=== PATIENT | male | born 1955 | race Caucasian/White ===

== ENCOUNTER → 2018-03-17 11:43 | Outpatient (CLI) | payer BC, SELFPAY ==
--- NOTE | 2018-03-17 11:49 | RAD_ITS ---
STUDY: X-RAY CHEST REASON FOR EXAM: Male, 62 years old. Shortness of breath. TECHNIQUE: PA and lateral views of the chest. COMPARISON: Comparison is made with prior study dated March 29, 2015. FINDINGS: Hyperinflation. Stable mild increased linear markings at the lung bases suggestive of mild bibasilar linear scarring. Blunting of both costophrenic angles. Normal size heart. Normal mediastinum and marlee. Normal visualized pulmonary arteries. There is atherosclerotic calcification of the aortic arch with tortuosity. Normal visualized thoracic spine. Normal visualized ribs, clavicles, and shoulders. There is no demonstrated abnormality of the visualized soft tissue structures of the upper abdomen. RAD/Chest PA and Lateral IMPRESSION: Hyperinflation. Stable mild increased linear markings at the lung bases suggestive of a mild basilar scarring. Electronically Signed: Pernell Darby MD at 12:26 EDT Tel [phone], Service support ,
== END ==
PROVIDERS: Family Provider Family Medicine; PCP Family Medicine; Visit Provider Nurse Practitioner Adult Health
DX: R06.02 Shortness of breath (principal)
CPT/HCPCS: 71046

== ENCOUNTER → 2018-07-06 12:04 | Outpatient (CLI) | payer BC, SELFPAY | PROVIDERS: Family Provider Family Medicine; PCP Family Medicine; Visit Provider Internal Medicine Pulmonary Disease | DX: Z87.891 Personal history of nicotine dependence (principal); Z12.2 Encounter for screening for malignant neoplasm of respiratory organs | CPT/HCPCS: G0297 ==

== ENCOUNTER 2019-12-11 08:48 | Inpatient (IN) | payer MEDICARE, OTHER, SELFPAY ==
[2019-12-11] VITALS (18 sets, daily range): BP systolic 99–168; BP diastolic 41–87; PULSE 78–104; RESP 12–38; TEMP 36.4–37; O2SAT 95–99; BMI 24.3; BMI 23.6; BMI 23.7
--- NOTE | 2019-12-11 08:56 | EKG12_ITS ---
Test Reason : SOB Blood Pressure : / mmHG Vent. Rate : 087 BPM Atrial Rate : 087 BPM P-R Int : 118 ms QRS Dur : 080 ms QT Int : 354 ms P-R-T Axes : 084 074 068 degrees QTc Int : 425 ms Normal sinus rhythm Normal ECG When compared with ECG of 29-MAR-2015 21:02, No significant change was found Confirmed by MARY JOHN, VERONICA ([id number]), general expeditor NICOLASA CHERRY ([id number]) on 12/25/2019 2:49:06 PM Referred By: VLAD Confirmed By:NOAH HERNANDEZ MD
--- NOTE | 2019-12-11 08:58 | CT_ITS ---
STUDY: CT ABDOMEN AND PELVIS WITH CONTRAST REASON FOR EXAM: Male, 64 years old. SOB X 1 WEEK, DIARRHEA, ABD PAIN RADIATION DOSAGE (If Supplied By Facility): CTDIvol = ( 11.53 ) mGy, DLP = ( 592.60 ) mGycm TECHNIQUE: Transaxial images were obtained from the dome of the diaphragm to the symphysis pubis without oral contrast. Oral and amp; IV Gastrografin and amp; 100mL Isovue-300 was administered. Sagittal and coronal images were reconstructed. Individualized dose optimization techniques were used for this CT. COMPARISON: None. FINDINGS: The visualized lung bases are unremarkable. The visualized portions of the heart are within normal limits. There is a 2.6 cm x 2.5 cm x 3.3 cm cyst in the left lobe of the liver. Possible tiny gallstones along the dependent portion of the gallbladder. Normal spleen. Normal pancreas. Normal bilateral adrenal glands. Normal right kidney. Normal left kidney. Normal visualized stomach. Normal small intestine. There are multiple colonic diverticula consistent with diverticulosis. The appendix is visualized and appears normal. There is diffuse atherosclerotic calcification of the abdominal aorta, without a demonstrated aneurysm. Normal inferior vena cava. Normal retroperitoneum. Normal urinary bladder. Edematous on prior lower anterior abdominal wall hernia repair. Disc space narrowing with subchondral sclerosis and spondylosis in the lower lumbar spine worse at the L4-L5 level. Loss of the normal lumbar lordosis. CT/Abdomen/Pelvis WITH Contrast IMPRESSION: I suspect tiny gallstones along the dependent portion of the gallbladder lumen. 2.6 cm x 2.5 cm x 3.3 cm cyst in the left lobe of the liver. Electronically Signed: Pernell Darby, at 12:34 EST , Service support ,
--- NOTE | 2019-12-11 08:59 | RAD_ITS ---
STUDY: X-RAY CHEST REASON FOR EXAM: Male, 64 years old. SOB TECHNIQUE: Single AP portable view of the chest. COMPARISON: Comparison is made with prior study dated March 17, 2018. FINDINGS: EKG electrodes are seen. Hyperinflation. Stable mild increase in markings at the lung bases suggest some mild bibasilar scarring. There is no demonstrated pleural abnormality. Normal size heart. Normal mediastinum and marlee. Normal visualized pulmonary arteries. There is atherosclerotic calcification of the aortic arch with tortuosity. Normal visualized thoracic spine. Normal visualized ribs, clavicles, and shoulders. There is no demonstrated abnormality of the visualized soft tissue structures of the upper abdomen. RAD/Chest 1 View (Portable) IMPRESSION: Hyperinflation. Stable mild increased linear markings at the lung bases. Electronically Signed: Pernell Darby, at 9:43 EST , Service support ,
--- NOTE | 2019-12-11 09:05 | ED.DCSUM_ITS ---
- ER Visit Summary Date of Service: 12/11/19 Chief Complaint: Shortness of breath History of Present Illness: The patient is a 64 M presenting with shortness of breath. Family states he has been short of breath for awhile. Patient states that he is on 5 L home O2. He has been increasingly short of breath recently. He also complains of diarrhea which has been ongoing for several weeks. He states that he is having 3 episodes of diarrhea per day. He denies blood in the stool. He has had a decreased appetite and family states he is no longer eating. He denies chest pain. Denies fever. He has nausea with no vomiting. He has cramping diffuse abdominal pain. Denies other complaints. Physical Examination: Vitals are stable. Patient is afebrile. Alert no acute distress. HEENT exam is unremarkable. Neck is supple. Lungs are diffuse wheezing and diminished bilaterally Heart is regular rate and rhythm. Abdomen is soft diffuse abdominal tenderness. No rebound or guarding Extremities are unremarkable. Skin is warm and dry. No focal neurologic deficit. Remainder of exam is unremarkable. Emergency Department Course and Treatment: Patient is given albuterol, Atrovent aerosols. He was started on BiPAP on arrival to the ED. EKG is sinus rate of 87 with no acute ischemic changes. CBC, chemistries unremarkable other than CO2 39, glucose 117. ALT 68. Lipase 58. Troponin negative. Lactic acid normal. Urinalysis is unremarkable. Chest x-ray shows hyperinflation. Stable mild increased linear markings at the lung bases. Patient was taken off BiPAP for a trial and did well until he started to move around and became extremely short of breath again. BiPAP was started again. CT abdomen pelvis shows suspect tiny gallstones along the dependent portion of the gallbladder lumen. 2.6 cm x 2.5 cm x 3.3 cm cyst in the left lobe of the liver. Stool studies were ordered. He was given Solu-Medrol IV. Discussed with the hospitalist for admission. Disposition: Admission Impression: COPD exacerbation, diarrhea This note was generated with [employer] dictation software. It may contain incorrect words, spelling, and punctuation that were not noted in review of the chart prior to signing ED Disposition - Plan for ED Patient: Referrals: Tyron Judge MD [Primary Care Provider] -
[2019-12-11 09:15] LABS: Absolute Lymphocyte Count 1.09 X10^3/uL (0.83-4.51); Absolute Neutrophil Count 7.4 X10^3/uL (2.0-7.7); Basophil# 0.06 X10^3/uL; Basophil% 0.7 % (0-1); Eosinophil# 0.07 X10^3/uL; Eosinophils% 0.8 % (0-5); Hematocrit 43.4 % (40-54); Hemoglobin 13.9 g/dL (13.0-16.5); Lymphocyte # 1.09 X10^3/ul (4.0); Lymphocyte % 11.9 % (19-41); Mean Corpuscular Hgb 32.4 pg (27.0-32.0); Mean Corpuscular Volume 101.2 fL (80-94); Mean Platelet Vol. 11.6 fl (6.2-12.0); Monocyte# 0.53 X10^3/uL; Monocyte% 5.8 % (0-10); NRBC Flagged by Analyzer 0 % (0-5); Neutrophil # 7.41 X10^3/uL (2.7-7.7); Neutrophil % 80.5 % (47-70); Platelet Count 160 K/mm3 (150-450); RBC Distribution Width CV 11.8 % (11.6-14.6); RBC Distribution Width SD 43.4 fl (35.1-43.9); Red Blood Count 4.29 M/mm3 (4.6-6.2); White Blood Count 9.2 K/mm3 (4.4-11.0)
[2019-12-11] MEDS: Ipratropium/Albuterol Sulfate 3 ML AMPUL.NEB INHALATION ×3 (09:27→19:22)
[2019-12-11] MEDS: Albuterol 2.5 MG/3 ML VIAL.NEB. INHALATION ×3 (09:27→10:01)
[2019-12-11 09:34] LABS: Lactic Acid 1.1 mmol/L (0.4-1.9)
[2019-12-11 09:37] LABS: ALB/GLOB Ratio 0.9 RATIO (0.9-2.4); AST(SGOT) 34 U/L (15-37); Alanine Aminotransfer ALT/SGPT 68 U/L (16-61); Albumin, Serum 3.8 g/dL (3.2-5.0); Alkaline Phosphatase 89 U/L (45-117); Anion Gap 0 (5-15); BUN 11 mg/dL (7-18); BUN/Creat Ratio 13.9 RATIO (10-20); Calcium,Total 9.3 mg/dL (8.5-10.1); Chloride 98 mmol/L (98-107); Creatinine, Serum 0.79 mg/dL (0.70-1.30); EST Glomerular Filtration Rate 104 mL/min (>60); Est Glom Filt Rate - Afr Amer 126 mL/min (>60); Estimated Creatinine Clearance 96.26 ml/min; Globulin 4.1 g/dL (2.2-4.2); Glucose 117 mg/dL (74-106); Lipase 58 U/L (73-393); Potassium 4.5 mmol/L (3.5-5.1); Protein, Total 7.9 g/dL (6.4-8.2); Sodium Level 137 mmol/L (136-145)
[2019-12-11 11:02] LABS: Bacteria 0 SEEN /hpf (None Seen); Mucous, Urine 0 SEEN /hpf (<or=2+); Red Blood Cells-Urine 0 SEEN /hpf (0-5); Squamous Epithelial Cells - UA 0 SEEN /hpf (0-5); White Blood Cells 0 SEEN /hpf (0-5)
--- NOTE | 2019-12-11 11:02 | CPS ---
Had removed the BIPAP and placed on 5LPM O2 he had to get up to bedside and became very SOB and placed back on BIPAP.
[2019-12-11 11:07] LABS: Color, Urine Yellow (Yellow); Glucose, Dipstick Normal (Normal); Ketone-Dipstick Negative (Negative); Leukocyte Esterase-Dipstick Negative /ul (Negative); Nitrite-Dipstick Negative (Negative); Occult Blood-Urine Negative /ul (Negative); Protein-Dipstick Negative (Negative); Urine Bilirubin Dipstick Negative (Negative); Urine Clarity Sl. Cloudy (Clear); Urine Urobilinogen Normal (Normal)
[2019-12-11] MEDS: MethylPREDNISolone 125 MG/2 ML Vial IV (13:08)
--- NOTE | 2019-12-11 13:35 | HP.PCM_ITS ---
History of Present Illness Date of Admission: 12/11/19 Chief Complaint: diarrhea, shortness of breath The patient is a 64 year old M with a past medical history of COPD and depression. He was admitted through the ED on 12/11/2019 with a complaint of diarrhea and shortness of breath. He states diarrhea has been going on for about a week and gradually worsening. There was no blood and was mainly mucoid. He did not eat any takeout food at the time of the start of diarrhea but says he feels like anytime he eats he just has to go and goes times every day. He also noted that he was getting progressively short of breath. He has chronic respiratory failure due to COPD and is on 5 L at home. He has however been using his inhalers and nebulizers more frequently than usual and states the slightest exertion causes a saturation level to drop sometimes to the 80s. He still smokes though he says he smokes just a few sticks of cigarettes daily. He denied any cough but admitted to wheezing and denied any chest pain, nausea of vomiting no fever or chills. He does say that he took antibiotics about a week ago for respiratory infection. He denies any long distance travel or any history of clots in his legs or lungs. On admission in the ED, he was breathing at nearly 40 breaths/min and required BiPAP immediately. Vitals were significant for temperature of 97.6 with respiratory rate of 20 at time of review, pulse rate of 94 and blood pressure of 144/76. Chemistry was remarkable for bicarb of 39 with lactic acid of 1.1 and initial troponin of less than 0.015. Lipase was only 58. CBC was unremarkable with hemoglobin of 13.9 though he had mild elevation in MCV of 101.2 and MCH was 32.4. Chest x-ray showed hyperinflation with stable mild increased linear markings at the lung base. EKG showed normal sinus rhythm with no acute ST changes and CT of the abdomen and pelvis showed a 2.6 cm x 2.5 cm and 3.3 cm cyst in the left lobe of the liver and possible tiny gallstones along the dependent portion of the gallbladder with normal pancreas as well as loss of normal lumbar lordosis. He has been admitted to be managed for acute on chronic hypoxic respiratory failure due to COPD exacerbation and gastroenteritis. [] Past Medical History Allergies No Known Allergies Allergy (Verified 12/11/19 08:53) Home Medications: Ambulatory Orders Medication Instructions Recorded Furosemide [Lasix] 20 mg PO BIDLX 03/29/15 Citalopram Hydrobromide 10 mg PO DAILY 12/11/19 [Citalopram HBr] Gabapentin [Neurontin] 200 mg PO TID 12/11/19 Ipratropium/Albuterol Sulfate 3 ml IH Q4H PRN PRN 12/11/19 [Iprat-Albut 0.5-3(2.5) mg/3 ml] Levocetirizine Dihydrochloride 5 mg PO DAILY 12/11/19 Magnesium Oxide 400 mg PO TID 12/11/19 Surgical History: - - hernia repair Psychiatric History: Depression Lives: Spouse/ Significant Other Smoking Status: Current every day smoker Alcohol: None Drugs: None - *Family History Maternal History Items: No pertinent history Paternal History Items: No pertinent history Review of Systems Constitutional: Reports: Anorexia, Malaise, Weakness, Fatigue. Denies: Chills, Fever, Weight Change Eyes: Denies: Blurred vision HEENT: Denies: Head Aches, Sinus Congestion, Sinus Drainage Cardiovascular: Denies: Chest Pain, Palpitations Respiratory: Reports: Shortness of Breath, Shortness of breath at rest, Shortness of breath upon exertion, Wheezing. Denies: Cough, Sputum production Gastrointestinal: Reports: Diarrhea. Denies: Abdominal Pain, Nausea, Vomiting Genitourinary: Denies: Dysuria Musculoskeletal: Denies: Joint Pain, Joint Tenderness Skin: Denies: Rash, Wounds Neurological: Denies: Numbness, Tingling, Focal weakness Psychiatric: Denies: Anxiety, Depression, Homicidal Ideations, Suicidal Ideations Hematologic/ Lymphatic: Denies: Easy Bruising, Easy Bleeding VTE Information - Inpt Only VTE Present on Admission: No VTE Pharm Prophylaxis ordered?: Yes - Physical Exam Vitals/I&O's: Vital Signs Temp Pulse Resp BP Pulse Ox 97.6 F L 82 24 H 124/71 H 99 12/11/19 08:49 12/11/19 13:03 12/11/19 13:03 12/11/19 13:03 12/11/19 13:03 Oxygen Flow Rate (L/min) 6 Oxygen Delivery Method Nasal Cannula Weight: 169 lb 1.513 oz Body Mass Index (BMI) 24.3 General: Alert, Oriented x3, Cooperative, Lethargic HEENT: Atraumatic, PERRLA, EOMI, Normocephalic Oral: Dry Mucosa Neck: Supple, No JVD, Negative Carotid Bruits Lungs: - - diminished breath sounds in all lung springer; tachypneic, breathing through pursed lips; on 6L of oxygen by nasal canula Cardiovascular: Regular rate, Regular Rhythm, Normal S1, Normal S2, No murmurs Abdomen: Bowel Sounds Present, Soft, - - mild generalised tenderness, no guarding or rebound tenderness. Pyle's sign negative Extremities: No clubbing, No cyanosis, No edema, Capillary Refill Less than 3 Seconds Skin: No rashes, No breakdown Musculoskeletal: No Tenderness to Palpation of Joints or Extremities Lymphatic: No Cervical, Supraclavicular, or Inguinal Adenopathy Neurological: Cranial nerves II-XII grossly intact, Neuro grossly intact, Motor Exam 5/5 strength throughout Psych/Mental Status: Normal Affect, Appropriate, Alert and oriented to time, place, person, mood and affect Microbiology Past 72 Hours 12/11/19 09:15 Mucosa - Nose Influenza Types A,B Direct FA (ESTUARDO) - Final Laboratory Results 12/11/19 09:00: WBC 9.2, RBC 4.29 L, Hgb 13.9, Hct 43.4, MCV 101.2 H, MCH 32.4 H , MCHC 32.0, RDW Std Deviation 43.4, RDW Coeff of Bassam 11.8, Plt Count 160, MPV 11.6, Immature Gran % (Auto) 0.300, Neut % (Auto) 80.5 H, Lymph % (Auto) 11.9 L, Parker % (Auto) 5.8, Eos % (Auto) 0.8, Baso % (Auto) 0.7, Absolute Neuts (auto) 7.4, Absolute Lymphs (auto) 1.09, Nucleated RBC % 0 12/11/19 09:00: Sodium 137, Potassium 4.5, Chloride 98, Carbon Dioxide 39.0 H, Anion Gap 0 L, BUN 11, Creatinine 0.79, Estim Creat Clear Calc 96.26, Est GFR (MDRD) Af Amer 126, Est GFR (MDRD) Non-Af 104, BUN/Creatinine Ratio 13.9, Glucose 117 H, Calcium 9.3, Total Bilirubin 0.50, AST 34, ALT 68 H, Alkaline Phosphatase 89, Troponin I < 0.015, Total Protein 7.9, Albumin 3.8, Globulin 4.1, Albumin/Globulin Ratio 0.9, Lipase 58 L 12/11/19 09:00: Lactic Acid 1.1 12/11/19 11:00: Urine Color Yellow, Urine Clarity Sl. Cloudy, Urine pH 7.0, Ur Specific [place] 1.010, Urine Protein Negative, Urine Glucose (UA) Normal, Urine Ketones Negative, Urine Occult Blood Negative, Urine Nitrite Negative, Urine Bilirubin Negative, Urine Urobilinogen Normal, Ur Leukocyte Esterase Negative, Urine RBC 0 SEEN, Urine WBC 0 SEEN, Ur Squamous Epith Cells 0 SEEN, Urine Bacteria 0 SEEN, Urine Mucus 0 SEEN Diagnostic Data Abdomen/Pelvis CT 12/11/19 08:58 IMPRESSION: I suspect tiny gallstones along the dependent portion of the gallbladder lumen. 2.6 cm x 2.5 cm x 3.3 cm cyst in the left lobe of the liver. Electronically Signed: Pernell Darby, at 12:34 EST , Service support , Chest X-Ray 12/11/19 08:59 IMPRESSION: Hyperinflation. Stable mild increased linear markings at the lung bases. Electronically Signed: Pernell Darby, at 9:43 EST , Service support , Assessment/Plan 64 y/o admitted with a complaint of shortness of breath and diarrhea 1. Acute on chronic hypoxic respiratory failure due to COPD exacerbation * Admit to PCU with telemetry * CBC shows no leukocytosis and BMP shows bicarb of 39 which is likely due to chronic retention of CO2 * Chest x-ray showed no acute cardiopulmonary process. * Start IV Solu-Medrol 40 mg every 8 hours. Breathing treatment with DuoNeb's. * Patient counseled strongly that he will need to quit smoking. * Check respiratory panel. * Get 2D echo as well is concerned that his shortness of breath is getting worse and that he do not know if he has any history of heart disease or otherwise. 2. Acute gastroenteritis * Has been having diarrhea for the past week. * States he received antibiotics about a week ago for a respiratory infection. Check C. difficile. * Check stool enteric pathogen panel * Hydrated with IV fluid normal saline at 150 cc/h. * If C. difficile comes back negative, to consider starting Lomotil 3. Depression: Recently diagnosed. On citalopram. DVT prophylaxis: Lovenox CODE STATUS: Full code * Patient and family ounseled extensively about different types of CODE STATUS including full code, DNR CCA and DNR CCA. Patient elects to be full code. * Total [id number] time 17 minutes. Code Visit Inpatient E&M: 93893 Init Hosp L3 Procedures: 55071 Advncd Care Plan 30 Min
--- NOTE | 2019-12-11 14:41 | ECHOD_ITS ---
Reason For Study: Dyspnea/SOB Procedure This was a 2D Doppler, Color Flow transthoracic echocardiogram. Exam performed portable in patient room. Left Ventricle Normal LV size. Left ventricular systolic function is normal. The estimated ejection fraction is 60 %. Normal diastology for age. No regional wall motion abnormalities noted. Right Ventricle Normal RV size. Normal systolic function. Atria Normal left atrium. Normal right atrium. Mitral Valve Normal mitral valve. Tricuspid Valve Normal tricuspid valve. Mild (1+) tricuspid valve insufficiency. Pulmonary artery systolic pressure is 36 mmHg. Aortic Valve Normal aortic valve. Pulmonic Valve The pulmonic valve is not well visualized. Great Vessels Normal aortic root. The pulmonary artery is normal size. Normal inferior vena cava. Pericardium/Pleural No pericardial effusion. MMode/2D Measurements & Calculations LVIDd: 4.7 cm IVSd: 0.78 cm Ao root diam: 2.8 cm LVIDs: 3.4 cm LVPWd: 0.93 cm RVDd: 4.1 cm FS: 27.8 % LAV(MOD-bp): 29.3 ml LA A4 area: 11.8 cm2 LA dimension(2D): 3.3 cm LAV(MOD-bp) Indexed: 15.3 ml/m2 LAV(MOD-sp2): 30.5 ml LAV(MOD-sp4): 23.5 ml RA A4 area: 12.7 cm2 Doppler Measurements & Calculations MV E max murphy: 63.9 cm/sec Lat Peak E' Murphy: 10.5 cm/sec Med Peak E' Murphy: 8.7 cm/sec MV A max murphy: 75.0 cm/sec E/E' lat: 6.1 E/E' med: 7.3 MV E/A: 0.85 Ao V2 max: 167.6 cm/sec LV V1 max: 126.5 cm/sec PA V2 max: 138.9 cm/sec Ao max P.2 mmHg LV V1 max P.4 mmHg Ao V2 mean: 118.4 cm/sec Ao mean P.0 mmHg Ao V2 VTI: 30.0 cm TR max murphy: 285.6 cm/sec TR max P.6 mmHg Interpretation Summary Normal LV size. Left ventricular systolic function is normal. The estimated ejection fraction is 60 %. Normal diastology for age. Mild (1+) tricuspid valve insufficiency. Pulmonary artery systolic pressure is 36 mmHg. Ordering Physician: Cheli Obando Referring Physician: Tyron Judge Performed By: Constanza Michelle RDCS, RVT
--- NOTE | 2019-12-11 15:15 | NURSING ---
this RN taking over care at this time
[2019-12-11] MEDS: 0.9% Normal Saline 1,000 ML 150 ML IV ×2 (15:54→21:53)
[2019-12-11 15:55] LABS: BNP,B-Type NATRIURETIC PEPTIDE 8.9 pg/mL (0-100)
[2019-12-11] MEDS: Citalopram 10 MG Tablet PO (21:37)
--- NOTE | 2019-12-11 21:55 | NURSING ---
Unscheduled dose of Celexa given due to patient takes medication at HS and requested it to be given at bedtime.
[2019-12-12] VITALS (15 sets, daily range): BP systolic 104–138; BP diastolic 39–73; PULSE 69–88; RESP 18–20; TEMP 36.7–36.9; O2SAT 88–100
[2019-12-12] MEDS: 0.9% Normal Saline 1,000 ML 150 ML IV (04:35)
[2019-12-12] MEDS: Ipratropium/Albuterol Sulfate 3 ML AMPUL.NEB INHALATION ×4 (04:55→19:06)
[2019-12-12 06:06] LABS: Absolute Lymphocyte Count 0.48 X10^3/uL (0.83-4.51); Absolute Neutrophil Count 9.5 X10^3/uL (2.0-7.7); Basophil# 0.01 X10^3/uL; Basophil% 0.1 % (0-1); Hematocrit 38.1 % (40-54); Hemoglobin 12.2 g/dL (13.0-16.5); Lymphocyte # 0.48 X10^3/ul (4.0); Lymphocyte % 4.7 % (19-41); Mean Corpuscular Hgb 32.3 pg (27.0-32.0); Mean Corpuscular Volume 100.8 fL (80-94); Mean Platelet Vol. 11.2 fl (6.2-12.0); Monocyte# 0.24 X10^3/uL; Monocyte% 2.3 % (0-10); NRBC Flagged by Analyzer 0 % (0-5); Neutrophil # 9.51 X10^3/uL (2.7-7.7); Neutrophil % 92.4 % (47-70); POSITIVE DIFFERENTIAL YES; Platelet Count 139 K/mm3 (150-450); RBC Distribution Width CV 11.5 % (11.6-14.6); RBC Distribution Width SD 42.1 fl (35.1-43.9); Red Blood Count 3.78 M/mm3 (4.6-6.2); White Blood Count 10.3 K/mm3 (4.4-11.0)
[2019-12-12 06:07] LABS: Differential Indicated SCAN CRITERIA MET
[2019-12-12 06:23] LABS: Anion Gap 1 (5-15); BUN 13 mg/dL (7-18); BUN/Creat Ratio 20.7 RATIO (10-20); Calcium,Total 8.5 mg/dL (8.5-10.1); Chloride 101 mmol/L (98-107); Creatinine, Serum 0.63 mg/dL (0.70-1.30); EST Glomerular Filtration Rate 137 mL/min (>60); Est Glom Filt Rate - Afr Amer 165 mL/min (>60); Glucose 136 mg/dL (74-106); Potassium 4.9 mmol/L (3.5-5.1); Sodium Level 139 mmol/L (136-145)
[2019-12-12 06:30] LABS: Platelet Estimate ADEQUATE (ADEQ)
[2019-12-12 06:31] LABS: Red Cell Morphology NORM C+C NORMAL (NORM C&C)
[2019-12-12] MEDS: Loratadine 10 MG Tablet 5 MG PO (08:38)
--- NOTE | 2019-12-12 09:28 | CASEMGMT ---
Patient has a Healthcare Living Will and Healthcare Power of Roll Repairer. He is aware they are not on file at [facility] and it would be good to bring copies to [facility] when able. Bethany BABIN
--- NOTE | 2019-12-12 10:56 | CASEMGMT ---
MARY HERNANDEZ assessment: Face to Face with patient for initial transition planning/care coordination assessment. MARY HERNANDEZ introduced self and role at [facility], pt voices understanding and consents to assessment at this time. Pt is sitting up in bed in some respiratory distress at this time. Pt is only able to answer a couple words at a time and has conversational dyspnea. Pt is A/Ox4 at this time and answers all questions appropriately at this time. Pt's sig other is at bedside during assessment. Care providers, pharmacy, and demographics verified/updated at this time. 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 Pt is aware that [facility] can complete AD paperwork, voices understanding. LNOK: Shai Mead, sig other; Lilia Martínez, daughter Living Arrangements: Pt states lives with sig other in 1 story home with 2 steps in and states no concerns at home at this time. Pt states is normally independent with ADL's but sig other can help, if needed. Transportation: Pt states drives self and states no transportation concerns at this time. DME/HHC: Pt states has a grab bar in the shower and home oxygen 5liters through [facility]. Pt states has nebulizer 'that somebody gave him' but states that 'it's really old and does not work well anymore.' Call to [facility] and per Thiago, the last order that they have for pt oxygen is for 2 liters continuous. MARY HERNANDEZ to send new order for increased home oxygen need and for nebulizer at discharge. Pt states he would still like to use [facility] at this time. Pt states no need for any further DME at this time. Pt states no hx of HHC or SNF in the past. Pt states no concerns with going home at time of discharge. 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 Pt states still smokes 3-4cigarettes daily but plans to quit after this admission and declines ETOH use. Pt states no further concerns/needs at this time. CM to follow for increase oxygen need and for any further discharge planning/needs. Advised pt/sig other to ask for CM if any further questions/concerns/needs arise, voices understanding. Pt Goal: Home Plan: Home Syed HERNANDEZ CM
--- NOTE | 2019-12-12 12:03 | PN_ITS ---
<Shaan Contreras - Last Filed: 12/12/19 12:03> Reason for Visit: SOB Subjective: Pt chronically uses 5lpm o2 and follows [facility] for pulm. He feels somewhat better than when he came in, however he is very dyspneic. He has been using his inhaler every time he gets out of bed even to go to the bathroom. The only physical activity he can tolerate is walking to the bathroom and back. He has severe conversational dyspnea with pursed lip breathing. He has a non productive cough. No LE edema. No CP. No fever/chills. Vitals/I&O's: Vital Signs Temp Pulse Resp BP Pulse Ox 98.5 F 81 18 104/39 L 97 12/12/19 08:30 12/12/19 10:20 12/12/19 10:20 12/12/19 08:30 12/12/19 08:30 Oxygen Flow Rate (L/min) 5 Oxygen Delivery Method Nasal Cannula Weight: 165 lb 2.02 oz Body Mass Index (BMI) 23.6 Intake and Output for Last 24 Hours 12/10/19 12/11/19 12/12/19 23:59 23:59 23:59 Intake Total 1497.5 / 1497.5 2360 / 2360 Balance 1497.5 / 1497.5 2360 / 2360 General: Alert, Oriented x3, Cooperative HEENT: Atraumatic, PERRLA, EOMI, Normocephalic Neck: Supple, No JVD, Negative Carotid Bruits Lungs: Clear to auscultation, Diminished - severely, - - pursed lip breathing Cardiovascular: Regular rate, No murmurs Abdomen: Bowel Sounds Present, Soft, Non Tender Extremities: No edema, Capillary Refill Less than 3 Seconds Skin: No rashes, No breakdown Musculoskeletal: No Tenderness to Palpation of Joints or Extremities Neurological: Cranial nerves II-XII grossly intact Psych/Mental Status: Anxious, Alert and oriented to time, place, person, mood and affect Microbiology Past 72 Hours 12/11/19 15:00 Stool Enteric Bacteriology - Final 12/11/19 15:00 Mucosa - Nose Respiratory Panel (PCR) - Final 12/11/19 15:00 Stool C. difficile DNA Amplification - Final 12/11/19 09:15 Mucosa - Nose Influenza Types A,B Direct FA (ESTUARDO) - Final Laboratory Results 12/11/19 09:00: B-Natriuretic Peptide 8.9 12/11/19 15:28: Troponin I < 0.015 12/11/19 18:16: Troponin I < 0.015 12/12/19 05:50: WBC 10.3, RBC 3.78 L, Hgb 12.2 L, Hct 38.1 L, MCV 100.8 H, MCH 32.3 H, MCHC 32.0, RDW Std Deviation 42.1, RDW Coeff of Bassam 11.5 L, Plt Count 139 L, MPV 11.2, Immature Gran % (Auto) 0.500, Neut % (Auto) 92.4 H, Lymph % (Auto) 4.7 L, Baca % (Auto) 2.3, Eos % (Auto) 0.0, Baso % (Auto) 0.1, Absolute Neuts (auto) 9.5 H, Absolute Lymphs (auto) 0.48 L, Nucleated RBC % 0, Differential Comment COMMENT, Platelet Estimate ADEQUATE, RBC Morphology NORM C+C 12/12/19 05:50: Sodium 139, Potassium 4.9, Chloride 101, Carbon Dioxide 37.0 H, Anion Gap 1 L, BUN 13, Creatinine 0.63 L, Estim Creat Clear Calc 120.70, Est GFR (MDRD) Af Amer 165, Est GFR (MDRD) Non-Af 137, BUN/Creatinine Ratio 20.7 H, Glucose 136 H, Calcium 8.5 Current Medications Albuterol/Ipratropium (Duoneb) 3 ml INHALATION Q4H PRN PRN PRN Reason: SOB &/OR WHEEZING Last Admin: 12/12/19 10:13 Dose: 3 ml Documented by: Citalopram Hydrobromide (Celexa) 10 mg PO DAILY@2200 NATE Gabapentin (Neurontin) 200 mg PO TID NATE Last Admin: 12/12/19 05:02 Dose: Not Given Documented by: Glucagon () 1 mg IM .X1 PRN PRN Reason: Hypoglycemia Guaifenesin (Robitussin) 20 ml PO Q4H PRN PRN PRN Reason: COUGH Dextrose (Dextrose 10%-Water) 250 mls @ 999 mls/hr IV .Q16M PRN; Protocol PRN Reason: HYPOGLYCEMIA Sodium Chloride () 250 mls @ 15 mls/hr IV .[id number] PRN PRN Reason: Saline Flush Sodium Chloride () 250 mls @ 15 mls/hr IV .[id number] PRN PRN Reason: Additional IVPB Infusion Loratadine (Claritin) 5 mg PO DAILY [facility] Last Admin: 12/12/19 08:38 Dose: 5 mg Documented by: Methylprednisolone (Solu-Medrol) 40 mg IV Q8 [facility] Last Admin: 12/12/19 05:02 Dose: 40 mg Documented by: Nitroglycerin (Nitrostat) 0.4 mg SUBLINGUAL Q5M PRN PRN Reason: CARDIAC/CHEST PAIN Nutritional Formula (Lactose Free) (Ensure Enlive) 120 ml PO 4X/DAY [facility] Last Admin: 12/12/19 08:42 Dose: Not Given Documented by: Ondansetron HCl (Zofran) 4 mg IV Q8H PRN PRN PRN Reason: NAUSEA/VOMITING Sodium Chloride () 10 - 40 ml IV UD PRN PRN Reason: SALINE FLUSH STROKE Vital Signs/Narrative: Vital Signs Temp Pulse Resp BP Pulse Ox 12/12/19 10:20 81 18 12/12/19 08:30 98.5 F 85 20 H 104/39 L 97 Medical Necessity - Tobacco Use Smoking Status: Current every day smoker Assessment/Plan 1. Acute on chronic hypoxic hypercapnic respiratory failure - continue solumedrol, aerosols, incentive failure. Pt of Dr. Jaramillo. Former smoker. Viral panel, UA negative. negative. Flu screen negative. LA negative. Trop neg x 3. No fever/leukocytosis. 2. Acute gastroenteritis - suspect viral. No BM today. will decrease IVF rate. Cdiff, enteric panel negative. Lip negative. 3. Depression - celexa DVT ppx: SCDs. trend platelets. DC planning: Consider palliative consult This patient was seen by Shaan Contreras PA-C under the supervision of Dr. Baldwin. <Felipe Baldwin F - Last Filed: 12/12/19 13:38> Vitals/I&O's: Vital Signs Temp Pulse Resp BP Pulse Ox 98.5 F 81 18 104/39 L 88 12/12/19 08:30 12/12/19 10:20 12/12/19 10:20 12/12/19 08:30 12/12/19 11:11 Oxygen Flow Rate (L/min) 5 Oxygen Delivery Method Nasal Cannula Weight: 165 lb 2.02 oz Body Mass Index (BMI) 23.6 Intake and Output for Last 24 Hours 12/10/19 12/11/19 12/12/19 23:59 23:59 23:59 Intake Total 1497.5 / 1497.5 2360 / 2360 Balance 1497.5 / 1497.5 2360 / 2360 Microbiology Past 72 Hours 12/11/19 15:00 Stool Enteric Bacteriology - Final 12/11/19 15:00 Mucosa - Nose Respiratory Panel (PCR) - Final 12/11/19 15:00 Stool C. difficile DNA Amplification - Final 12/11/19 09:15 Mucosa - Nose Influenza Types A,B Direct FA (ESTUARDO) - Final Laboratory Results 12/11/19 09:00: B-Natriuretic Peptide 8.9 12/11/19 15:28: Troponin I < 0.015 12/11/19 18:16: Troponin I < 0.015 12/12/19 05:50: WBC 10.3, RBC 3.78 L, Hgb 12.2 L, Hct 38.1 L, MCV 100.8 H, MCH 32.3 H, MCHC 32.0, RDW Std Deviation 42.1, RDW Coeff of Bassam 11.5 L, Plt Count 139 L, MPV 11.2, Immature Gran % (Auto) 0.500, Neut % (Auto) 92.4 H, Lymph % (Auto) 4.7 L, Baca % (Auto) 2.3, Eos % (Auto) 0.0, Baso % (Auto) 0.1, Absolute Neuts (auto) 9.5 H, Absolute Lymphs (auto) 0.48 L, Nucleated RBC % 0, Differential Comment COMMENT, Platelet Estimate ADEQUATE, RBC Morphology NORM C+C 12/12/19 05:50: Sodium 139, Potassium 4.9, Chloride 101, Carbon Dioxide 37.0 H, Anion Gap 1 L, BUN 13, Creatinine 0.63 L, Estim Creat Clear Calc 120.70, Est GFR (MDRD) Af Amer 165, Est GFR (MDRD) Non-Af 137, BUN/Creatinine Ratio 20.7 H, Glucose 136 H, Calcium 8.5 Current Medications Albuterol/Ipratropium (Duoneb) 3 ml INHALATION Q4H PRN PRN PRN Reason: SOB &/OR WHEEZING Last Admin: 12/12/19 10:13 Dose: 3 ml Documented by: Citalopram Hydrobromide (Celexa) 10 mg PO DAILY@2200 NATE Gabapentin (Neurontin) 200 mg PO TID [facility] Last Admin: 12/12/19 05:02 Dose: Not Given Documented by: Glucagon () 1 mg IM .X1 PRN PRN Reason: Hypoglycemia Guaifenesin (Robitussin) 20 ml PO Q4H PRN PRN PRN Reason: COUGH Dextrose (Dextrose 10%-Water) 250 mls @ 999 mls/hr IV .Q16M PRN; Protocol PRN Reason: HYPOGLYCEMIA Sodium Chloride () 250 mls @ 15 mls/hr IV .[id number] PRN PRN Reason: Saline Flush Sodium Chloride () 250 mls @ 15 mls/hr IV .[id number] PRN PRN Reason: Additional IVPB Infusion Loratadine (Claritin) 5 mg PO DAILY [facility] Last Admin: 12/12/19 08:38 Dose: 5 mg Documented by: Methylprednisolone (Solu-Medrol) 40 mg IV Q8 [facility] Last Admin: 12/12/19 05:02 Dose: 40 mg Documented by: Nitroglycerin (Nitrostat) 0.4 mg SUBLINGUAL Q5M PRN PRN Reason: CARDIAC/CHEST PAIN Nutritional Formula (Lactose Free) (Ensure Enlive) 120 ml PO 4X/DAY [facility] Last Admin: 12/12/19 08:42 Dose: Not Given Documented by: Ondansetron HCl (Zofran) 4 mg IV Q8H PRN PRN PRN Reason: NAUSEA/VOMITING Sodium Chloride () 10 - 40 ml IV UD PRN PRN Reason: SALINE FLUSH STROKE Vital Signs/Narrative: Vital Signs Pulse Resp Pulse Ox 12/12/19 11:11 88 12/12/19 10:20 81 18 Code Visit Addendum: Dr. Baldwin I personally examined the patient and reviewed the chart. I agree with the above. 64-year-old male who presented to the hospital with a COPD exacerbation as well as diarrhea. He had multiple stool tests are all negative. And he states that his diarrhea has improved. He is normally on 5 L of oxygen at home however yesterday it was not enough and he is unable to go higher. He was getting significantly short of breath walking to the bathroom. He feels much better today though will likely need an ambulatory pulse ox prior to discharge to change his oxygen requirements at home. His bicarb is fairly high at 37 lik guillermo related to his previous tachypnea, does seem to be trending down. We will continue to monitor and continue with his home inhaler medications as well as steroids. Inpatient E&M: 38827 Subs Hosp L2
[2019-12-12] MEDS: 0.9% Saline Lock 10 ML Syringe IV ×2 (14:25→21:29)
[2019-12-12] MEDS: Citalopram 10 MG Tablet PO (22:10)
[2019-12-13] VITALS (13 sets, daily range): BP systolic 118–122; BP diastolic 46–61; PULSE 74–90; RESP 16–20; TEMP 36.6–36.7; O2SAT 84–99
[2019-12-13] MEDS: Ipratropium/Albuterol Sulfate 3 ML AMPUL.NEB INHALATION ×3 (05:14→14:23)
[2019-12-13 05:55] LABS: Absolute Lymphocyte Count 0.69 X10^3/uL (0.83-4.51); Absolute Neutrophil Count 13.7 X10^3/uL (2.0-7.7); Basophil# 0.02 X10^3/uL; Basophil% 0.1 % (0-1); Hematocrit 39.6 % (40-54); Hemoglobin 12.4 g/dL (13.0-16.5); Lymphocyte # 0.69 X10^3/ul (4.0); Lymphocyte % 4.6 % (19-41); Mean Corp Hgb Conc 31.3 g/dL (32-36); Mean Corpuscular Hgb 31.9 pg (27.0-32.0); Mean Corpuscular Volume 101.8 fL (80-94); Mean Platelet Vol. 11.3 fl (6.2-12.0); Monocyte# 0.49 X10^3/uL; Monocyte% 3.3 % (0-10); NRBC Flagged by Analyzer 0 % (0-5); Neutrophil # 13.66 X10^3/uL (2.7-7.7); Neutrophil % 91.3 % (47-70); Platelet Count 144 K/mm3 (150-450); RBC Distribution Width CV 11.7 % (11.6-14.6); RBC Distribution Width SD 43.8 fl (35.1-43.9); Red Blood Count 3.89 M/mm3 (4.6-6.2)
[2019-12-13 06:17] LABS: Anion Gap -1 (5-15); BUN 14 mg/dL (7-18); BUN/Creat Ratio 23.9 RATIO (10-20); Calcium,Total 8.9 mg/dL (8.5-10.1); Chloride 99 mmol/L (98-107); Creatinine, Serum 0.58 mg/dL (0.70-1.30); EST Glomerular Filtration Rate 148 mL/min (>60); Est Glom Filt Rate - Afr Amer 179 mL/min (>60); Estimated Creatinine Clearance 131.11 ml/min; Glucose 125 mg/dL (74-106); Potassium 4.9 mmol/L (3.5-5.1); Sodium Level 139 mmol/L (136-145)
[2019-12-13] MEDS: 0.9% Saline Lock 10 ML Syringe IV ×2 (06:19→13:17)
--- NOTE | 2019-12-13 09:56 | CASEMGMT ---
Addendum entered by Bethany Giraldo 12/13/19 11:13: SW received return call from patient's daughter. SW explained Palliative Care with her and she is open to talking with them with her father. She is frustrated with him as he will not listen to her about how serious his condition is currently. She said she could come to [facility] any time today, but would have to leave by 2p. CAN told her SW will call Palliative Care and let them know. CAN called Lisy and she said they could meet at 1p, but she will call the daughter. CAN spoke with patient and let him know Palliative Care will be here around 1p as will his daughter. He thanked SW. RN was also notified. Plan: Palliative Care will meet with patient and his daughter at 1p today at [facility]. Bethany BABIN Original Note: LIZ spoke with patient about Palliative Care and he was agreeable to a consult. CAN met with patient and his friend, Ashley. CAN introduced self and role at [facility]. SW explained Palliative Care and he was in agreement with talking with them. He would like his daughterLilia present for the meeting. He gave SW permission to talk with his daughter. CAN called patient's daughterLilia and left her a voice mail requesting a return call. CAN called Lisy at [facility] and made referral. CAN asked her to wait to call the daughter so SW can talk with her first. CAN faxed information to Palliative Care. Bethany BABIN
[2019-12-13] MEDS: Loratadine 10 MG Tablet 5 MG PO (10:07)
[2019-12-13] MEDS: Mag Hydrox/Al Hydrox/Simeth 30 ML UDC PO (10:08)
--- NOTE | 2019-12-13 11:37 | PCM.DC ---
You will use the following diet at home:: Cardiac Your food should be the consistency of: Regular Your liquids should be the consistency of: Regular/Thin Discharge Activity: Return to Normal Activity Allergies/Adverse Reactions: Allergies No Known Allergies Allergy (Verified 12/11/19 08:53) Medications to take at Discharge Furosemide [Lasix] 20 mg PO BIDLX 03/29/15 Citalopram Hydrobromide [Citalopram HBr] 10 mg PO DAILY 12/11/19 Gabapentin [Neurontin] 200 mg PO TID 12/11/19 Ipratropium/Albuterol Sulfate [Iprat-Albut 0.5-3(2.5) mg/3 ml] 3 ml IH Q4H PRN PRN 12/11/19 Levocetirizine Dihydrochloride 5 mg PO DAILY 12/11/19 Magnesium Oxide 400 mg PO TID 12/11/19 Prednisone 10 mg PO UD #30 tab 12/13/19 The following prescriptions were given: Prednisone 10 mg PO UD #30 tab Transmission Status: Pending to [id number] Primary Care Physician: Tyron Judge MD [Primary Care Provider] - Please follow up with your Primary Care Physician in: 1-2 weeks Test Results: Test results from this visit will be discussed in further detail at your follow-up appointment, if applicable. Please Follow Up With: Palliative care When: As directed Proposed Discharge Date: 12/13/19
--- NOTE | 2019-12-13 11:44 | CASEMGMT ---
Addendum entered by Angelita Alex 12/13/19 16:16: Pt needs 4liters continuous at discharge after testing. Pt does get very tachypnic with any ambulation. Updated order and order for nebulizer faxed to [facility] at this time. Edie at [place] notified of increased order and need for tanks at home, voices understanding. Pt updated on all at this time, voices understanding. Pt states that he does have nebulizer meds at home to use. Pt also referred to palliative and did sign to palliative care at this time and they are to f/u with pt regarding hospice. Pt voices no further questions/concerns/needs at this time. This MARY HERNANDEZ to fax d/c summary to [facility] at this time. Syed HERNANDEZ CM Original Note: Pt is insisting that his order is for 5liters home oxygen so this MARY HERNANDEZ placed call to Edie at [facility] again to verify and she states that the only order that pt has at this time is for 2liters continuous and 3liters at bedtime at this time. She states that the only equipment that they have charted for pt is the home concentrator and pt states that he has his own inogen portable concentrator that he states he bought. This RN MARY advised Regan HERNANDEZ that pt needs to be tested on the 2liters at rest at this time to see if he qualifies and to see how much oxygen pt will require continuous at discharge. This MARY HERNANDEZ to fax order for nebulizer and increased oxygen(if pt qualifies) to [place] prior to discharge. Syed HERNANDEZ CM
--- NOTE | 2019-12-13 13:00 | PHA.DC.MC ---
Pharmacy Service has performed discharge medication reconciliation and counseling for this patient. 1. PREDNISONE 40MG PO DAILY X 3 DAYS, THEN 30MG X 3 DAYS, THEN 20MG X 3 DAYS, THEN 10MG X 3 DAYS The patient's discharge medication list was reviewed for discrepancies and discrepancies were resolved. Home Medications Furosemide [Lasix] 20 mg PO BIDLX 03/29/15 Citalopram Hydrobromide [Citalopram HBr] 10 mg PO DAILY 12/11/19 Gabapentin [Neurontin] 200 mg PO TID 12/11/19 Ipratropium/Albuterol Sulfate [Iprat-Albut 0.5-3(2.5) mg/3 ml] 3 ml IH Q4H PRN PRN 12/11/19 Levocetirizine Dihydrochloride 5 mg PO DAILY 12/11/19 Magnesium Oxide 400 mg PO TID 12/11/19 Prednisone 10 mg PO UD #30 tab 12/13/19 The patient was counseled on the following discharge medications and changes in medications for homegoing were reviewed. The Reason for Use, instructions for use, and potential side effects were reviewed for all new medications. The patient's questions regarding all of their medications were answered. The patient was able to verbally demonstrate an understanding of their discharge medications.
--- NOTE | 2019-12-13 13:12 | DS.PCM_ITS ---
<Shaan Contreras - Last Filed: 12/13/19 13:12> Discharge Date and Diagnosis Date of Admission: 12/11/19 Date of Discharge: 12/13/19 - Primary Discharge Diagnosis Acute COPD exacerbation Emphysema Chronic hypoxic, hypercapnic, respiratory failure Acute gastroenteritis, viral, resolved Depression - Secondary Discharge Diagnosis Chronic Problems COPD exacerbation (Chronic) Hospital Course and Treatment Imaging Results: CT/Abdomen/Pelvis WITH Contrast IMPRESSION: I suspect tiny gallstones along the dependent portion of the gallbladder lumen. 2.6 cm x 2.5 cm x 3.3 cm cyst in the left lobe of the liver. RAD/Chest 1 View (Portable) IMPRESSION: Hyperinflation. Stable mild increased linear markings at the lung bases. Echo: Interpretation Summary Normal LV size. Left ventricular systolic function is normal. The estimated ejection fraction is 60 %. Normal diastology for age. Mild (1+) tricuspid valve insufficiency. Pulmonary artery systolic pressure is 36 mmHg. Consults: Palliative care Operations: None Procedures: 2-D Echocardiogram Summary of Care Provided: Hospital Course: The patient is a 64 year old M with pmhx of severe COPD, emphysema, chronic mixed respiratory failure, depression, who presented to the ER with c/o increased SOB and diarrhea. He was severely wheezy and minimally tolerant of any physical activity like standing up despite using 5lpm o2 at home. He had been using 5 lpm at baseline however was feeling much worse. He had been using his inhaler every time he got out of bed and walked to the bathroom which was the furthest activity he could tolerate. He had no CP, fevers, chills, or LE edema. He had a CXR with hyperinflation. CT abd was negative for acute process. Trop was neg. x 3. He was admitted for acute COPD exacerbation. He remained stable on his baseline O2, so acute hypoxic respiratory failure was ruled out. He was treated with solumedrol and aerosols which he responded well to. Stool was checked for C diff, and enteric pathogens which were negative. Resp panel was negative. He had ongoing severe SOB and conversational dyspnea with pursed lip breathing. He admitted that he was told he needed a lung transplant but that he was not interested. He was agreeable to palliative care and referral was made. He reported he just wanted to go home and spend time with his 8 year old daughter. He was transitioned to a prednisone taper. 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 We clarified his home o2 orders while here. He had been using 5lpm o2 at home chronically however it was only ordered as 2 liters which he insisted was incorrect. We retested him. The patient is active at home and in the community and will require up to 5lpm O2 at rest and with exertion to maintain adequate sats. This patient was seen by Shaan Contreras PA-C under the supervision of Dr. Baldwin. [] - Physical Exam Vitals/I&O's: Vital Signs Temp Pulse Resp BP Pulse Ox 98.1 F 85 16 118/61 94 12/13/19 10:05 12/13/19 11:00 12/13/19 10:39 12/13/19 10:05 12/13/19 12:13 Oxygen Flow Rate (L/min) [At 5 REST on Room Air] Oxygen Flow Rate (L/min) [ 4 AMBULATION with Oxygen] Oxygen Flow Rate (L/min) 4 Oxygen Delivery Method Nasal Cannula Weight: 165 lb 2.02 oz Body Mass Index (BMI) 23.6 Intake and Output for Last 24 Hours 12/11/19 12/12/19 12/13/19 23:59 23:59 23:59 Intake Total 1497.5 / 1497.5 3040 / 3040 340 / 340 Output Total 250 / 250 675 / 675 Balance 1497.5 / 1497.5 2790 / 2790 -335 / -335 General: Alert, Oriented x3, Cooperative HEENT: Atraumatic, PERRLA, EOMI, Normocephalic Neck: Supple, No JVD, Negative Carotid Bruits Lungs: Diminished - severely Cardiovascular: Regular rate, No murmurs Abdomen: Bowel Sounds Present, Soft, Non Tender Extremities: No edema, Capillary Refill Less than 3 Seconds Skin: No rashes, No breakdown Musculoskeletal: No Tenderness to Palpation of Joints or Extremities Neurological: Cranial nerves II-XII grossly intact Psych/Mental Status: Normal Affect, Appropriate, Alert and oriented to time, place, person, mood and affect Microbiology Past 72 Hours 12/12/19 11:30 Sputum, Expectorated/Coughed Gram Stain - Final 12/12/19 11:30 Sputum, Expectorated/Coughed Respiratory Culture - Preliminary Alpha hemolytic organism 12/11/19 15:00 Stool Enteric Bacteriology - Final 12/11/19 15:00 Mucosa - Nose Respiratory Panel (PCR) - Final 12/11/19 15:00 Stool C. difficile DNA Amplification - Final 12/11/19 09:15 Mucosa - Nose Influenza Types A,B Direct FA (ESTUARDO) - Final Laboratory Results 12/13/19 05:20: WBC 15.0 H, RBC 3.89 L, Hgb 12.4 L, Hct 39.6 L, MCV 101.8 H, MCH 31.9, MCHC 31.3 L, RDW Std Deviation 43.8, RDW Coeff of Bassam 11.7, Plt Count 144 L, MPV 11.3, Immature Gran % (Auto) 0.700, Neut % (Auto) 91.3 H, Lymph % (Auto) 4.6 L, Lyman % (Auto) 3.3, Eos % (Auto) 0.0, Baso % (Auto) 0.1, Absolute Neuts (auto) 13.7 H, Absolute Lymphs (auto) 0.69 L, Nucleated RBC % 0 12/13/19 05:20: Sodium 139, Potassium 4.9, Chloride 99, Carbon Dioxide 41.0 H, Anion Gap -1 L, BUN 14, Creatinine 0.58 L, Estim Creat Clear Calc 131.11, Est GFR (MDRD) Af Amer 179, Est GFR (MDRD) Non-Af 148, BUN/Creatinine Ratio 23.9 H, Glucose 125 H, Calcium 8.9 Current Medications Al Hydroxide/Mg Hydroxide (Mylanta Ii) 30 ml PO Q6H PRN PRN PRN Reason: HEARTBURN OR INDIGESTION Last Admin: 12/13/19 10:08 Dose: 30 ml Documented by: Albuterol/Ipratropium (Duoneb) 3 ml INHALATION Q4H PRN PRN PRN Reason: SOB &/OR WHEEZING Last Admin: 12/13/19 10:39 Dose: 3 ml Documented by: Citalopram Hydrobromide (Celexa) 10 mg PO DAILY@2200 NATE Last Admin: 12/12/19 22:10 Dose: 10 mg Documented by: Gabapentin (Neurontin) 200 mg PO TID [facility] Last Admin: 12/13/19 06:19 Dose: Not Given Documented by: Glucagon () 1 mg IM .X1 PRN PRN Reason: Hypoglycemia Guaifenesin (Robitussin) 20 ml PO Q4H PRN PRN PRN Reason: COUGH Dextrose (Dextrose 10%-Water) 250 mls @ 999 mls/hr IV .Q16M PRN; Protocol PRN Reason: HYPOGLYCEMIA Sodium Chloride () 250 mls @ 15 mls/hr IV .[id number] PRN PRN Reason: Saline Flush Sodium Chloride () 250 mls @ 15 mls/hr IV .[id number] PRN PRN Reason: Additional IVPB Infusion Loratadine (Claritin) 5 mg PO DAILY [facility] Last Admin: 12/13/19 10:07 Dose: 5 mg Documented by: Methylprednisolone (Solu-Medrol) 40 mg IV Q8 [facility] Last Admin: 12/13/19 06:19 Dose: 40 mg Documented by: Nitroglycerin (Nitrostat) 0.4 mg SUBLINGUAL Q5M PRN PRN Reason: CARDIAC/CHEST PAIN Nutritional Formula (Lactose Free) (Ensure Enlive) 120 ml PO 4X/DAY [facility] Last Admin: 12/13/19 10:09 Dose: Not Given Documented by: Ondansetron HCl (Zofran) 4 mg IV Q8H PRN PRN PRN Reason: NAUSEA/VOMITING Sodium Chloride () 10 - 40 ml IV UD PRN PRN Reason: SALINE FLUSH Last Admin: 12/13/19 06:19 Dose: 10 ml Documented by: Discharge Diet: Low fat/ Low Cholesterol, 2000 mg Sodium Diet Discharge Activity: Return to Normal Activity Home Medications: Medications to take at Discharge Furosemide [Lasix] 20 mg PO BIDLX 03/29/15 Citalopram Hydrobromide [Citalopram HBr] 10 mg PO DAILY 12/11/19 Gabapentin [Neurontin] 200 mg PO TID 12/11/19 Ipratropium/Albuterol Sulfate [Iprat-Albut 0.5-3(2.5) mg/3 ml] 3 ml IH Q4H PRN PRN 12/11/19 Levocetirizine Dihydrochloride 5 mg PO DAILY 02/10/20 Magnesium Oxide 400 mg PO TID 12/11/19 Prednisone 10 mg PO UD #30 tab 12/13/19 Following Prescrptions Were Given to Patient: Prednisone 10 mg PO UD #30 tab Transmission Status: Sent to [facility] Primary Care Physician: Tyron Judge MD [Primary Care Provider] - Please follow up with your Primary Care Physician in: 1-2 weeks Please Follow Up With: Palliative care When: As directed Please Follow Up With: Renato Jaramillo MD When: 2 weeks Disposition: Home Minutes spent on discharge:: 35 Patient Condition:: Stable Medical Necessity - Tobacco Use Smoking Status: Current every day smoker Meaningful Use Info Meaningful Use Diagnoses (Choose all that apply): None applicable <Felipe Baldwin F - Last Filed: 12/13/19 16:36> Discharge Date and Diagnosis - Secondary Discharge Diagnosis Chronic Problems COPD exacerbation (Chronic) Hospital Course and Treatment Summary of Care Provided: The patient is a 64 year old M [] - Physical Exam Vitals/I&O's: Vital Signs Temp Pulse Resp BP Pulse Ox 98.1 F 79 16 118/61 95 12/13/19 10:05 12/13/19 14:23 12/13/19 14:23 12/13/19 10:05 12/13/19 13:40 Oxygen Flow Rate (L/min) [At 4 REST on Room Air] Oxygen Flow Rate (L/min) [ 4 AMBULATION with Oxygen] Oxygen Flow Rate (L/min) 4 Oxygen Delivery Method Nasal Cannula Weight: 165 lb 2.02 oz Body Mass Index (BMI) 23.6 Intake and Output for Last 24 Hours 12/11/19 12/12/19 12/13/19 23:59 23:59 23:59 Intake Total 1497.5 / 1497.5 3040 / 3040 340 / 340 Output Total 250 / 250 675 / 675 Balance 1497.5 / 1497.5 2790 / 2790 -335 / -335 Microbiology Past 72 Hours 12/12/19 11:30 Sputum, Expectorated/Coughed Gram Stain - Final 12/12/19 11:30 Sputum, Expectorated/Coughed Respiratory Culture - Preliminary Alpha hemolytic organism 12/11/19 15:00 Stool Enteric Bacteriology - Final 12/11/19 15:00 Mucosa - Nose Respiratory Panel (PCR) - Final 12/11/19 15:00 Stool C. difficile DNA Amplification - Final 12/11/19 09:15 Mucosa - Nose Influenza Types A,B Direct FA (ESTUARDO) - Final Laboratory Results 12/13/19 05:20: WBC 15.0 H, RBC 3.89 L, Hgb 12.4 L, Hct 39.6 L, MCV 101.8 H, MCH 31.9, MCHC 31.3 L, RDW Std Deviation 43.8, RDW Coeff of Bassam 11.7, Plt Count 144 L, MPV 11.3, Immature Gran % (Auto) 0.700, Neut % (Auto) 91.3 H, Lymph % (Auto) 4.6 L, Lyman % (Auto) 3.3, Eos % (Auto) 0.0, Baso % (Auto) 0.1, Absolute Neuts (auto) 13.7 H, Absolute Lymphs (auto) 0.69 L, Nucleated RBC % 0 12/13/19 05:20: Sodium 139, Potassium 4.9, Chloride 99, Carbon Dioxide 41.0 H, Anion Gap -1 L, BUN 14, Creatinine 0.58 L, Estim Creat Clear Calc 131.11, Est GFR (MDRD) Af Amer 179, Est GFR (MDRD) Non-Af 148, BUN/Creatinine Ratio 23.9 H, Glucose 125 H, Calcium 8.9 Current Medications Al Hydroxide/Mg Hydroxide (Mylanta Ii) 30 ml PO Q6H PRN PRN PRN Reason: HEARTBURN OR INDIGESTION Last Admin: 12/13/19 10:08 Dose: 30 ml Documented by: Albuterol/Ipratropium (Duoneb) 3 ml INHALATION Q4H PRN PRN PRN Reason: SOB &/OR WHEEZING Last Admin: 12/13/19 14:23 Dose: 3 ml Documented by: Citalopram Hydrobromide (Celexa) 10 mg PO DAILY@2200 [facility] Last Admin: 12/12/19 22:10 Dose: 10 mg Documented by: Gabapentin (Neurontin) 200 mg PO TID [facility] Last Admin: 12/13/19 13:21 Dose: Not Given Documented by: Glucagon () 1 mg IM .X1 PRN PRN Reason: Hypoglycemia Guaifenesin (Robitussin) 20 ml PO Q4H PRN PRN PRN Reason: COUGH Dextrose (Dextrose 10%-Water) 250 mls @ 999 mls/hr IV .Q16M PRN; Protocol PRN Reason: HYPOGLYCEMIA Sodium Chloride () 250 mls @ 15 mls/hr IV .[id number] PRN PRN Reason: Saline Flush Sodium Chloride () 250 mls @ 15 mls/hr IV .[id number] PRN PRN Reason: Additional IVPB Infusion Loratadine (Claritin) 5 mg PO DAILY [facility] Last Admin: 12/13/19 10:07 Dose: 5 mg Documented by: Methylprednisolone (Solu-Medrol) 40 mg IV Q8 [facility] Last Admin: 12/13/19 13:16 Dose: 40 mg Documented by: Nitroglycerin (Nitrostat) 0.4 mg SUBLINGUAL Q5M PRN PRN Reason: CARDIAC/CHEST PAIN Nutritional Formula (Lactose Free) (Ensure Enlive) 120 ml PO 4X/DAY [facility] Last Admin: 12/13/19 13:21 Dose: Not Given Documented by: Ondansetron HCl (Zofran) 4 mg IV Q8H PRN PRN PRN Reason: NAUSEA/VOMITING Sodium Chloride () 10 - 40 ml IV UD PRN PRN Reason: SALINE FLUSH Last Admin: 12/13/19 13:17 Dose: 10 ml Documented by: Code Visit Addendum: Dr. Baldwin I personally examined the patient and reviewed the chart. I agree with the above. 64-year-old male presented to the hospital with what appears to be end- stage COPD. He was supposed to be on 2 L at home but is on 5 now. He had an ambulatory pulse ox today on the day of discharge and did not require more oxygen. He will be transitioned to 5 L via nasal cannula. We did have palliative care come and evaluate him however they felt he was too far advanced for palliative care and might benefit from hospice. 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 He does have a leukocytosis but this is likely related to the steroids he was receiving well in the hospital. He was discharged on a prednisone taper along with his home inhalers. Inpatient E&M: [id number] [facility]
--- NOTE | 2019-12-13 14:22 | CASEMGMT ---
Bella from Palliative Care came and spoke with patient and his daughter. Bella did talk about Hospice with them as well as patient would be more appropriate for Hospice. Patient wanted to talk with his family and Bella will follow up with them Quinn if she has not heard from them. Bethany AGRAWAL MSW
== END 2019-12-13 16:28 | disposition home or self-care (01) | DRG 191 ==
LOC: ED 10:09 → PCU 13:43
PROVIDERS: Physician Assistant; Admitting Provider Student in an Organized Health Care Education/Training Program; Emergency Provider Emergency Medicine; PCP Family Medicine; Visit Provider Family Medicine
DX: J44.1 Chronic obstructive pulmonary disease with (acute) exacerbation (principal); J96.11 Chronic respiratory failure with hypoxia; J96.12 Chronic respiratory failure with hypercapnia; A08.4 Viral intestinal infection, unspecified; F32.9 Major depressive disorder, single episode, unspecified; Z99.81 Dependence on supplemental oxygen; K76.89 Other specified diseases of liver; F17.210 Nicotine dependence, cigarettes, uncomplicated; Z79.51 Long term (current) use of inhaled steroids; Z79.899 Other long term (current) drug therapy; D72.829 Elevated white blood cell count, unspecified
CPT/HCPCS: 36415; 71045; 74177; 80048; 80053; 81001; 83605; 83690; 83880; 84484; 85025; 87070; 87205; 87493; 87506; 87633; 87804; 93005; 93306; 94002; 94640; 94667; 94668; 97163; 97530; 97802; 99251; 99284; 99406; J7030; Q9957; Q9967; A4216; G0463